=== PATIENT | male | born 1950 | race African-American/Black ===

== ENCOUNTER 2016-11-06 10:40 | Emergency (ER) | payer MEDICARE, BC ==
[2016-11-06 11:47] LABS: #Basophils 0.1 thou/uL (0.0-0.2); #Eosinphils 0.3 thou/uL (0.0-0.7); #Lymphocytes 1.7 thou/uL (1.20-3.40); #Monocytes 0.6 thou/uL (0.11-0.59); #Neutrophils 4.4 thou/uL (1.40-6.50); %Basophils 1.8 % (0.0-1.0); %Eosinophils 3.9 % (0.0-10.0); Hematocrit 32.1 % (42.0-52.0); Mean Platelet Volume 5.8 fL (7.4-10.4); Red Blood Cell (RBC) Count 3.23 mill/uL (4.70-6.10)
[2016-11-06 11:56] LABS: ALT (SGPT) 36 U/L (0-55); AST (SGOT) 16 U/L (5-34); Alkaline Phosphatase 58 U/L (40-150); Anion Gap 13 mmol/L (10-20); BUN (Urea Nitrogen) 77 mg/dL (8.4-25.7); Bilirubin, Total 0.5 mg/dL (0.2-1.2); Calc. Creatinine Clearance 0 mL/min (70-130); Calcium 9.3 mg/dL (7.8-10.44); Carbon Dioxide 22 mmol/L (23-31); Chloride 106 mmol/L (98-107); Estimated GFR-MDRD 18; Globulin 3.3 g/dL (2.4-3.5); Protein, Total 6.9 g/dL (5.8-8.1); Troponin I 0.017 ng/mL (< 0.028)
[2016-11-06 12:23] LABS: Bilirubin Negative (Negative); Blood, Urine Negative (Negative); Glucose, Urine (Dipstick) Negative (Negative); Ketone, Urine Trace mg/dL (Negative); Nitrite Negative (Negative); Protein, Urine (Dipstick) 30 mg/dL (Neg-Trace); Urobilinogen 0.2 mg/dL (0.2-1.0)
[2016-11-06 12:32] LABS: Bacteria/HPF Rare-Few HPF (None Seen); RBC/HPF None Seen HPF (0-3); Squamous Epithelial 0-3 HPF (0-3); WBC/HPF 0-3 HPF (0-3)
--- NOTE | 2016-11-06 12:34 | CT ---
CT BRAIN WITHOUT CONTRAST: Date: 11-06-[address] was done for evaluation following syncope. There are no prior scans available for comparison. FINDINGS: The ventricles are normal in size for age and show no shift. No intracranial bleeding or parenchyma l mass or hematoma was seen. There is no edema present. There is no sign of acute stroke. On slice 7 through the base of the brain there is a curious calcific density on the inside of the lo w left frontal bone. This is probably just volume averaging with the bone below. There would be an outside chance that it could be a small meningioma, but as it is only 1.1 cm in size and the possib ility of this just being volume averaging is very high, I would hesitate to do much more with it at this point. It certainly is unrelated to any current symptoms. IMPRESSION: 1. No acute intracranial findings. 2. See comment above regarding base of the left frontal bone, more likely volume averaging than not . POS: HOME
[2016-11-06 17:47] LABS: Anion Gap 13 mmol/L (10-20); BUN (Urea Nitrogen) 71 mg/dL (8.4-25.7); Calc. Creatinine Clearance 0 mL/min (70-130); Carbon Dioxide 19 mmol/L (23-31); Chloride 111 mmol/L (98-107); Estimated GFR-MDRD 21
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
--- NOTE | 2016-11-06 18:27 | PICIS ---
[facility] EMERGENCY RECORD COMMUNICATIONS COMMUNICATIONS: Ambulance service, contacted at 1415, Name of provider EMS, requested for transfer to another facility, by advanced life support transport. (14:25 LGIB) Notes: CONTACTED EMS AGAIN, ALL COUNTY TRUCKS ON CALLS AT THIS TIME AND WE WILL GET A TRUCK SOON POSSIBLE. (15:50 LGIB) Notes: EMS REP CALLED BACK AND REPORTED THAT AN OUTSIDE SERVICE WOULD TAKE AT LEAST 2 HOURS TO RECEIVE PATIENT. [facility] TRUCK IS OUT OF SERVICE. [facility] BEING SENT TO COVER THE COUNTY WHILE [facility] TRANSPORTS PATIENT TO [place]. (17:46 LGIB) TRIAGE (WedNov 06, 2016 10:48 HASA) TRIAGE NOTES: Weakness and black-out episodes x3 days. (WedNov 06, 2016 10:48 HASA) PATIENT: NAME: Norberto Mendez, AGE: 66, GENDER: male, : Wed1950, TIME OF GREET: WedNov 06, 2016 10:41, PREFERRED LANGUAGE: [place] Zealander, ETHNICITY: Not or , ECODE BILLING MAP: [facility], SSN: [id number], Zip Code: [address], KG WEIGHT: 122.47, PHONE: , , , PERSON ID: [id number], PAYMENT: [employer] Medicare, PCP: DO TAPIA JOHN SCOTT. (WedNov 06, 2016 10:48 HASA) COMPLAINT: HYPOTENSION. (WedNov 06, 2016 10:48 HASA) ADMISSION: URGENCY: 3 Urgent, ADMISSION SOURCE: Home, TRANSPORT: Walk-in, BED: ER -02. (WedNov 06, 2016 10:48 HASA) SIRS SCORING: Heart Rate 55-109 (0), Temp range 96.8-101.1 (0), respiratory rate 12-24 (0), Latest WBC 3-14.9 (0), Mental Status altered: no (0), Infection or Suspected Infection: No. (11:36 HASA) TRIAGE SCREENING: Patient denies suicidal ideation, Patient denies presence of domestic violence. (11:36 HASA) PROVIDERS: TRIAGE NURSE: Fifi De Leon RN. (WedNov 06, 2016 10:48 HASA) PREVIOUS VISIT ALLERGIES: No Known Allergies. (WedNov 06, 2016 10:48 HASA) No Known Allergies. (11:36 HASA) KNOWN ALLERGIES No Known Allergies CURRENT MEDICATIONS allopurinol: TABLET : Strength - 300 mg : ORAL Patient Dose: 100 mg Oral once a day. (11:02 HASA) Coreg: TABLET : Strength - 12.5 mg : ORAL Patient Dose: 25 mg Oral 2 times a day. (11:02 HASA) HumuLIN N: CARTRIDGE (ML) : Strength - 100 unit/mL : SUBCUTANEOUS Patient Dose: 10 units Subcutaneous 2 times a day (before &a-1R&a+25V*p+0X*q1139F*c202B*c15G*c2P*p-0X&a-25V&a+1R Name: Norberto Mendez : 1950 M66 MedRec: [id number] AcctNum: [id number] Prepared: WedNov 06, 2016 22:48 by Interface Page 1 of 16 pMD [facility] EMERGENCY RECORD meals). (11:02 HAS) cloNIDine HCl: TABLET : Strength - 0.1 mg : ORAL Patient Dose: 1 tab(s) Oral 2 times a day. (11:02 ) amitriptyline: TABLET : Strength - 75 mg : ORAL Patient Dose: 140 mg Oral once a day (at bedtime). (11:02 HAS) amLODIPine: TABLET : Strength - 2.5 mg : ORAL Patient Dose: 2.5 mg Oral once a day. (11:03 HAS) aspirin: TABLET : Strength - 81 mg : ORAL Patient Dose: 81 mg Oral once a day. (11:03 HASA) cholecalciferol (vitamin D3): CAPSULE : Strength - 1,000 unit : ORAL Patient Dose: 1 tab(s) Oral once a day. (11:04 HAS) NexIUM Packet: SUSP FOR RECON,DELAYED REL. IN A PACKET : Strength - 20 mg : ORAL Patient Dose: 20 mg Oral once a day. (11:05 HAS) Lasix: TABLET : Strength - 40 mg : ORAL Patient Dose: 40 mg Oral once a day. (11:05 HAS) Lantus Solostar: INSULIN PEN (ML) : Strength - 100 unit/mL (3 mL) : SUBCUTANEOUS Patient Dose: 50 units Subcutaneous once a day (at bedtime). (11:43 HASA) HumuLIN 70/30: VIAL (ML) : Strength - 100 unit/mL (70-30) : SUBCUTANEOUS Patient Dose: 10 units Subcutaneous 3 times a day (before meals). (11:44 HASA) losartan: TABLET : Strength - 100 mg : ORAL Patient Dose: 100 mg Oral once a day. (11:45 HASA) meloxicam: TABLET : Strength - 7.5 mg : ORAL Patient Dose: 7.5 mg Oral once a day. (11:45 HASA) Fish Oil [place] 3-6-9: CAPSULE,DELAYED RELEASE (ENTERIC COATED) : Strength - 300 mg-1,000 mg : ORAL Patient Dose: 1 tab(s) Oral 2 times a day. (11:47 HASA) Restoril: CAPSULE : Strength - 30 mg : ORAL Patient Dose: 30 mg Oral once a day (at bedtime). (11:48 HASA) traMADol: TABLET : Strength - 50 mg : ORAL Patient Dose: 1-2 tab(s) Oral every 8 hours PRN. (11:48 HASA) Viagra: &a-1R&a+25V*p+0X*t7353A*c202B*c15G*c2P*p-0X&a-25V&a+1R Name: Norberto Mendez : 1950 M66 MedRec: [id number] AcctNum: [id number] Prepared: WedNov 06, 2016 22:48 by Interface Page 2 of 16 pMD [facility] EMERGENCY RECORD TABLET : Strength - 100 mg : ORAL Patient Dose: 100 mg Oral As Needed. (11:56 HASA) hydrALAZINE: TABLET : Strength - 100 mg : ORAL Patient Dose: 100 mg Oral 3 times a day. (12:51 HASA) VITAL SIGNS VITAL SIGNS: BP: 167/95, Pulse: 87, Resp: 17, Temp: 98.2 (Oral), Pain: 0, O2 sat: 98 on Room Air, Time: 11/06/2016 10:49. (10:49 HASA) BP: 114/69, Pulse: 82, Resp: 15, O2 sat: 94 on Room Air, Time: 11/06/2016 11:05. (11:05 HASA) BP: 124/71, Pulse: 82, Resp: 12, Time: 11/06/2016 11:10. (11:10 HASA) BP: 119/71, Pulse: 81, Resp: 20, O2 sat: 100 on Room Air, Time: 11/06/2016 11:15. (11:15 HASA) BP: 133/72, Pulse: 75, Resp: 16 (Non-Labored), Pain: 0, O2 sat: 100 on Room Air, Time: 11/06/2016 12:45. (12:45 LGIB) BP: 145/78, Pulse: 66, Resp: 16, O2 sat: 100 on Room Air, Time: 11/06/2016 15:15. (15:15 HASA) BP: 139/78, Pulse: 75, Resp: 12, O2 sat: 100 on Room Air, Time: 11/06/2016 15:30. (15:30 HASA) BP: 144/74, Pulse: 81, Resp: 12, Pain: 0, O2 sat: 100 on Room Air, Time: 11/06/2016 16:00. (16:00 HASA) BP: 156/80, Pulse: 68, Resp: 16, O2 sat: 100 on Room Air, Time: 11/06/2016 13:15. (13:15 HASA) BP: 163/79, Pulse: 67, Resp: 14, O2 sat: 100 on Room Air, Time: 11/06/2016 13:44. (13:44 HASA) BP: 178/98, Pulse: 63, Resp: 13, Pain: 0, O2 sat: 99 on Room Air, Time: 11/06/2016 14:30. (14:30 HASA) BP: 163/78, Pulse: 71, Resp: 12, O2 sat: 100 on Room Air, Time: 11/06/2016 16:30. (16:30 HASA) BP: 128/71, Pulse: 84, Resp: 12 (Non-Labored), Temp: 97.4 (Oral), Pain: 0, O2 sat: 100 on Room Air, Time: 11/06/2016 17:00. (17:00 HASA) BP: 117/75, Pulse: 82, Resp: 12, Pain: 0, O2 sat: 100 on Room Air, Time: 11/06/2016 17:30. (17:30 HASA) NURSING ASSESSMENT: FALL RISK (17:00 HASA) FALL RISK: Fall risk assessment findings include: no history of falls (0), Bed rest greater than 2 days (5), Use of level of consciousness altering agents with mentation or cognitive changes (3), Change in blood pressure (1), Sensory deficits (1), Impaired mobility (3), No neurologic diagnosis (0), No elimination problems (0), No confusion (0), Total score 13, Fall risk. NURSING ASSESSMENT: NEURO (11:19 HASA) GCS: (6) Obeying command:, (5) Orientated:, (4) Spontaneous eye opening., Result: 15. NIHSS: CVA assessment findings: Level of consciousness: alert, keenly responsive (0), Questions: answers both questions correctly (0), Commands: performs both tasks correctly (0), Best gaze: normal &a-1R&a+25V*p+0X*k7083J*c202B*c15G*c2P*p-0X&a-25V&a+1R Name: Norberto Mendez : 1950 M66 MedRec: [id number] AcctNum: [id number] Prepared: WedNov 06, 2016 22:48 by Interface Page 3 of 16 pMD [facility] EMERGENCY RECORD (0), Visual: no visual loss (0), Facial palsy: normal symmetrical movement (0), Motor Left Arm: no drift, arm stays 90/45 degrees for full 10 seconds (0), Motor Right Arm: no drift, arm stays 90/45 degrees for full 10 seconds (0), Motor left leg: no drift, leg stays at 30 degrees for full five seconds (0), Motor right leg: no drift, leg stays at 30 degrees for full five seconds (0), Limb ataxia absent (0), Sensory: normal, no sensory loss (0), Best language: mild to moderate aphasia; some obvious loss of fluency or facility of comprehension without significant limitation on ideas expressed or form of expression. Reduction of speech and/or comprehension, however, makes conversation about provided material difficult or impossible (1), Dysarthria: mild to moderate: patient slurs at least some words and, at worst, can be understood with some difficulty (1), Extinction and Inattention: normal (0), Total score 2. CONSTITUTIONAL: Patient arrives, via hospital wheelchair, Gait steady, History obtained from patient, Patient appears, Lethargic, Patient cooperative, Patient alert, Oriented to person, place and time, Skin warm, Skin dry, Skin normal in color, Mucous membranes pink, Mucous membranes moist, Patient is well-groomed, Patient complains of AMS, Patient arrives to the ED after being sent by PCP for BP of 100/66. Patient denies pain. Family reports patient has been having "black-out episodes" x3 days. Denies falling or hitting head. Reports weakness x3 days. PAIN: Patient rates pain as 0 out of 10. NEURO: Pupils equally round and reactive to light, Able to close eyes, Face symmetrical, Speech, slurred, slow, Hand grasps equal, Upper extremity strength strong, Lower extremity strength strong, Foot press equal, no associated fever, Associated with weakness. ENT: Ear assessment findings include ear normal to inspection, Nasal assessment findings include nose normal to inspection, Sinuses normal, Nasal mucosa normal, Mouth and throat assessment findings include mouth inspection normal, Uvula normal, Tonsils normal, Mucous membranes pink, and, dry, tacky, Able to swallow, Patient, Slurred and slow speech, no associated fever. SAFETY: Side rails up, Cart/Stretcher in lowest position, Family at bedside, Call light within reach, Hospital ID band on. NURSING ASSESSMENT: SKIN (17:00 HASA) SKIN: Skin assessment findings include skin warm, Skin dry, Skin normal in color, Inspection findings include: No pressure ulcer to the shoulder, Inspection findings include no pressure ulcer to the elbow, Inspection findings include no pressure ulcers to the hip, Inspection findings include no pressure ulcer to the sacrum, Inspection findings include no pressure ulcer to the heel, Inspection findings include no pressure ulcer, Inspection findings include no pressure ulcer. &a-1R&a+25V*p+0X*n9554O*c202B*c15G*c2P*p-0X&a-25V&a+1R Name: Norberto Mendez : 1950 M66 MedRec: [id number] AcctNum: [id number] Prepared: WedNov 06, 2016 22:48 by Interface Page 4 of 16 D [facility] EMERGENCY RECORD NURSING PROCEDURE: BEDSIDE SIRS TESTING (17:04 HASA) SCORES: Heart Rate 55-109 (0), Temp range 96.8-101.1 (0), respiratory rate 12-24 (0), Latest WBC 3-14.9 (0), Mental Status altered: no (0), Infection or Suspected Infection: No. NURSING PROCEDURE: BEDSIDE TESTING (10:54 HASA) PATIENT IDENTIFIER: Patient actively involved in identification process, Patient's identity verified by patient stating name, Patient's identity verified by patient stating date. GLUCOSE: Glucose testing indicated for diabetic patient, Capillary blood sample, Result (mg/dl) 91. FOLLOW-UP: After procedure, results given to Dr. RILEY. SAFETY: Side rails up, Cart/Stretcher in lowest position, Family at bedside, Call light within reach, Hospital ID band on. NURSING PROCEDURE: BINDER FIXER (10:59 HASA) PATIENT IDENTIFIER: Patient actively involved in identification process, Patient's identity verified by patient stating name, Patient's identity verified by patient stating date. BINDER FIXER: Patient placed on pvc monitor. FOLLOW-UP: After procedure, alarms set and on, After procedure, patient tolerating monitoring. SAFETY: Side rails up, Cart/Stretcher in lowest position, Family at bedside, Call light within reach, Hospital ID band on. NURSING PROCEDURE: EKG CHART (10:55 HASA) PATIENT IDENTIFIER: Patient actively involved in identification process, Patient's identity verified by patient stating name, Patient's identity verified by patient stating date. EKG: EKG indicated for HYPOTENSION/AMS, 12 lead EKG performed on the left chest, done by MARIAMA Burgess, first EKG. FOLLOW-UP: After procedure, EKG for interpretation given to Dr. RILEY. SAFETY: Side rails up, Cart/Stretcher in lowest position, Family at bedside, Call light within reach, Hospital ID band on. NURSING PROCEDURE: ELIMINATION PATIENT IDENTIFIER: Patient actively involved in identification process, Patient's identity verified by patient stating name, Patient's identity verified by patient stating date. (11:57 HASA) Patient actively involved in identification process, Patient's identity verified by patient stating name, Patient's identity verified by patient stating date. (17:51 HASA) ELIMINATION: Patient assisted to bedside commode. (11:57 HASA) Notes: Patient assisted to bathroom by wheelchair. (17:51 HASA) SAFETY: Side rails up, Cart/Stretcher in lowest position, Family at bedside, Call light within reach, Hospital ID band on. (17:51 HASA) &a-1R&a+25V*p+0X*j6306L*c202B*c15G*c2P*p-0X&a-25V&a+1R Name: Norberto Mendez : 1950 M66 MedRec: [id number] AcctNum: [id number] Prepared: WedNov 06, 2016 22:48 by Interface Page 5 of 16 pMD [facility] EMERGENCY RECORD NURSING PROCEDURE: INTAKE AND OUTPUT (17:38 HASA) INTAKE AND OUTPUT: IV intake(ml): 2500, Total Intake (ml): 2500ml, Urine output(ml): 1700, Total Output (ml): 1700ml, Grand Total: Intake is greater than output by 800mls. SAFETY: Side rails up, Cart/Stretcher in lowest position, Family at bedside, Call light within reach, Hospital ID band on. NURSING PROCEDURE: IV (10:53 HASA) PATIENT IDENITIFIER: Patient actively involved in identification process, Patient's identity verified by patient stating name, Patient's identity verified by patient stating date. IV SITE 1: IV therapy indicated for hydration, IV therapy indicated for medication administration, IV established, to the right hand, using a 20 gauge catheter, in one attempt, Saline lock established, Flushed with normal saline (mls): 10, Notes: Established by MARIAMA Gardner. FOLLOW-UP SITE 1: After procedure, sterile transparent dressing applied, After procedure, no drainage at IV site, After procedure, no swelling at IV site, After procedure, no redness at IV site. SAFETY: Side rails up, Cart/Stretcher in lowest position, Family at bedside, Call light within reach, Hospital ID band on. NURSING PROCEDURE: NURSE NOTES NURSES NOTES: Notes: PT RESTING, NAD, RR EVEN AND UNLABORED. NO NEEDS AT THIS TIME. IV FLUIDS INFUSING. (13:08 LGIB) Notes: Patient awaiting transport. Patient resting in bed. Lights dimmed for patient comfortability. IV fluids infusing. NAD. (14:43 HASA) Notes: Patient assisted to bedside commode. Encouraged to provide urine sample. Patient instructed not to get up without assistance from nursing staff. Family at bedside. (12:02 HASA) Notes: Provided warm blanket and lights off per patient request. Patient resting comfortably in bed. Eyes closed. Awaiting EMS transport. Family at bedside. Monitors on. NAD. (16:09 HASA) Notes: Lab @ bedside. (17:09 HASA) Notes: Notified Dr. Riley of K+ level change from 6.2 to 6.5. No new orders received at this time. (17:56 HASA) NURSING PROCEDURE: ORTHOSTATIC VITAL SIGNS (13:52 HASA) PATIENT IDENTIFIER: Patient actively involved in identification process, Patient's identity verified by patient stating name, Patient's identity verified by patient stating date. ORTHOSTATIC VITAL SIGNS: Orthostatic vital signs indicated for LETHARGY, Lying:, Blood pressure: 163/79, Sitting:, Blood pressure: 122/87, Standing:, Blood pressure: 99/83, No dizziness with position change, Unsteadiness on feet. FOLLOW-UP: After procedure, results given to Dr. RILEY. SAFETY: Side rails up, Cart/Stretcher in lowest position, Family at bedside, Call light within reach, Hospital ID band on. &a-1R&a+25V*p+0X*h5593G*c202B*c15G*c2P*p-0X&a-25V&a+1R Name: Norberto Mendez : 1950 M66 MedRec: [id number] AcctNum: [id number] Prepared: WedNov 06, 2016 22:48 by Interface Page 6 of 16 pMD [facility] EMERGENCY RECORD NURSING PROCEDURE: POSITIONING PATIENT IDENTIFIER: Patient actively involved in identification process, Patient's identity verified by patient stating name, Patient's identity verified by patient stating date. (14:05 HASA) Patient actively involved in identification process, Patient's identity verified by patient stating name, Patient's identity verified by patient stating date. (16:15 HASA) POSITIONING: Positioning indicated for prevention of pressure ulcers, Patient placed in dorsal recumbent position, Patient placed in semi-Brito's position, Patient placed in side lying position on the left, head of bed elevated, (degrees) 30. (14:05 HASA) Positioning indicated for prevention of pressure ulcers, Patient placed in dorsal recumbent position, Patient placed in semi-Brito's position, Patient placed in side lying position on the right, head of bed elevated, (degrees) 15. (16:15 HASA) FOLLOW-UP: After procedure, patient resting comfortably. (14:22 HASA) After procedure, patient resting comfortably. (16:29 HASA) SAFETY: Side rails up, Cart/Stretcher in lowest position, Family at bedside, Call light within reach, Hospital ID band on. (14:05 HASA) Side rails up, Cart/Stretcher in lowest position, Family at bedside, Call light within reach, Hospital ID band on. (16:15 HASA) NURSING PROCEDURE: TRANSPORT TO TESTS PATIENT IDENTIFIER: Patient actively involved in identification process, Patient's identity verified by patient stating name, Patient's identity verified by patient stating date. (11:31 HASA) TRANSPORT TO TESTS: Transport indicated to facilitate diagnosis, Patient transported to CT scan, via cart, Accompanied by x-ray spa technician. (11:31 HASA) FOLLOW-UP: After procedure, patient returned to emergency department. (11:39 HASA) SAFETY: Side rails up, Cart/Stretcher in lowest position, Family at bedside, Call light within reach, Hospital ID band on. (11:31 HASA) ORDER DETAILS Order Name: Basic Metabolic Panel, Status: Active, Time: 17:04 11/06/2016, User: MARTINA, - Ordered for: DO Riley William, - Entered by: MARIAMA De Leon, [facility] Nov 06, 2016 17:04, - Quantity: 1, Order Name: BINDER FIXER ED, Status: Done, Time: 11:40 11/06/2016, User: MARTINA, - Ordered for: DO Riley William, &a-1R&a+25V*p+0X*q4083U*c202B*c15G*c2P*p-0X&a-25V&a+1R Name: Norberto Mendez : 1950 M66 MedRec: [id number] AcctNum: [id number] Prepared: WedNov 06, 2016 22:48 by Interface Page 7 of 16 pMD [facility] EMERGENCY RECORD - Entered by: MARIAMA De Leon, [place] - WedNov 06, 2016 11:40, - Quantity: 1, Order Name: Cardiac Profile w/CKMB & Troponin - I, Status: Active, Time: 11:05 11/06/2016, User: ISABEL, - Ordered for: DO Riley William, - Entered by: DO Riley William - WedNov 06, 2016 11:05, - Quantity: 1, Order Name: CBC with Differential, Status: Active, Time: 11:05 11/06/2016, User: ISABEL, - Ordered for: DO Riley William, - Entered by: DO Riley William - WedNov 06, 2016 11:05, - Quantity: 1, Order Name: Comprehensive Metabolic Panel, Status: Active, Time: 11:05 11/06/2016, User: ISABEL, - Ordered for: DO Riley William, - Entered by: DO Riley William - WedNov 06, 2016 11:05, - Quantity: 1, Order Name: CT Brain WO Con, Status: Active, Time: 11:16 11/06/2016, User: ISABEL, - Ordered for: DO Riley William, - Entered by: DO Riley William - WedNov 06, 2016 11:16, - Quantity: 1, Order Name: EKG 12 Lead in Emergency Room, Status: Active, Time: 11:40 11/06/2016, User: MARTINA, - Ordered for: DO Riley William, - Entered by: MARIAMA De Leon, [place] - WedNov 06, 2016 11:40, - Quantity: 1, Order Name: SALINE LOCK, Status: Done, Time: 11:08 11/06/2016, User: CAMACHO, - Ordered for: DO Riley William, - Entered by: DO Riley William - WedNov 06, 2016 11:05, - Quantity: 1, Order Name: Urinalysis with Microscopic, Status: Active, Time: 12:00 11/06/2016, User: [facility], - Ordered for: DO Riley William, - Entered by: DO Riley William - WedNov 06, 2016 12:00, - Quantity: 1. MEDICATION ADMINISTRATION SUMMARY Drug Name: *sodium chloride 0.9 % intravenous, Dose Ordered: 1 L, Route: IV Fluid Infusion, Status: Given, Time: 14:31 11/06/2016, Drug Name: *sodium chloride 0.9 % intravenous, Dose Ordered: 1 L, Route: IV Fluid Infusion, Status: Given, Time: 13:01 11/06/2016, Drug Name: sodium polystyrene sulfonate oral, Dose Ordered: 15 g, Route: Oral, Status: Given, Time: 12:20 11/06/2016, Drug Name: *sodium chloride 0.9 % intravenous, Dose Ordered: 500 mL, Route: IV Fluid Infusion, Status: Given, Time: 11:07 11/06/2016, *Additional information available in notes, Detailed record available in Medication Service section. &a-1R&a+25V*p+0X*o8616Z*c202B*c15G*c2P*p-0X&a-25V&a+1R Name: Norberto Mendez : 1950 M66 MedRec: [id number] AcctNum: [id number] Prepared: WedNov 06, 2016 22:48 by Interface Page 8 of 16 pMD [facility] EMERGENCY RECORD MEDICATION SERVICE sodium chloride 0.9 % intravenous: Order: sodium chloride 0.9 % intravenous (0.9 % sodium chloride) - Dose: 500 mL : IV Fluid Infusion Notes: (Bolus) Ordered by: Shoaib Riley DO Entered by: Shoaib Riley DO WedNov 06, 2016 11:05 , Acknowledged by: Kendra Peralta RN WedNov 06, 2016 11:07 Documented as given by: Kendra Peralta RN WedNov 06, 2016 11:07 Patient, Medication, Dose, Route and Time verified prior to administration. IV SITE #1 IV fluids established for hydration, IV SITE #1 into right hand, IV SITE #1 1st bag hung, IV SITE #1 bolus of 500 ml established, via primary tubing, IV SITE #1 on IV pump, Catheter placement confirmed via flush prior to administration, IV site without signs or symptoms of infiltration during medication administration, No swelling during administration, No drainage during administration, IV flushed after administration, Correct patient, time, route, dose and medication confirmed prior to administration, Patient advised of actions and side-effects prior to administration, Allergies confirmed and medications reviewed prior to administration. : Follow Up : Response assessment performed, No signs or symptoms of allergic reaction noted, _IV SITE #1:_, IV fluid infusion discontinued, on WedNov 06, 2016 12:30, Total fluid hydration time IV site 1 1 hour, 25 minutes, ., Total amount infused: 1 L, Advised not to ambulate without assistance, Patient in position of comfort, Side rails up, Cart in lowest position, Family at bedside. (12:30 HASA) sodium chloride 0.9 % intravenous: Order: sodium chloride 0.9 % intravenous (0.9 % sodium chloride) - Dose: 1 L : IV Fluid Infusion Schedule: Every hour Notes: 1 HR Ordered by: Shoaib iRley DO Entered by: Shoaib Riley DO WedNov 06, 2016 12:04 , Acknowledged by: Alexia Moreland RN WedNov 06, 2016 12:14 Documented as given by: Alexia Moreland RN WedNov 06, 2016 13:01 Patient, Medication, Dose, Route and Time verified prior to administration. IV SITE #1 IV fluids established for hydration, IV SITE #1 into right hand, IV SITE #1 Rate of infusion (non-bolus) Infusing at 1000 ml/hr, via primary tubing, IV SITE #1 on IV pump, Catheter placement confirmed via flush prior to administration, IV site without signs or symptoms of infiltration during medication administration, No swelling during administration, No drainage during administration, IV flushed after administration, Correct patient, time, route, dose and medication confirmed prior to administration, Patient advised of actions and side-effects prior to administration, Allergies confirmed and medications reviewed prior to administration, Patient in position &a-1R&a+25V*p+0X*n9907E*c202B*c15G*c2P*p-0X&a-25V&a+1R Name: MendezNorberto castillo : 1950 M66 MedRec: [id number] AcctNum: [id number] Prepared: WedNov 06, 2016 22:48 by Interface Page 9 of 16 pMD [facility] EMERGENCY RECORD of comfort, Side rails up, Cart in lowest position, Family at bedside. : Follow Up : Response assessment performed, No signs or symptoms of allergic reaction noted, _IV SITE #1:_, IV fluid infusion discontinued, on WedNov 06, 2016 14:05, Total fluid hydration time IV site 1 1 hour, 5 minutes, ., Total amount infused: 1 L, Advised not to ambulate without assistance, Patient in position of comfort, Side rails up, Cart in lowest position, Family at bedside. (14:05 HASA) sodium chloride 0.9 % intravenous: Order: sodium chloride 0.9 % intravenous (0.9 % sodium chloride) - Dose: 1 L : IV Fluid Infusion Schedule: Now Notes: OVER [address] RILEY Ordered by: Shoaib Riley DO Entered by: Alexia Moreland RN WedNov 06, 2016 14:33 Documented as given by: Alexia Moreland RN WedNov 06, 2016 14:31 Patient, Medication, Dose, Route and Time verified prior to administration. IV SITE #1 IV fluids established for hydration, IV SITE #1 into right hand, IV SITE #1 3rd bag hung, amount 1 Liter hung, IV SITE #1 Rate of infusion (non-bolus) Infusing at 1000 ml/hr, via primary tubing, IV SITE #1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
== END 2016-11-06 18:10 | disposition short-term general hospital (02) ==
LOC: BURERS 10:40
DX: E86.0 Dehydration (principal); E87.5 Hyperkalemia; I95.1 Orthostatic hypotension; I25.10 Atherosclerotic heart disease of native coronary artery without angina pectoris; E11.9 Type 2 diabetes mellitus without complications; E78.5 Hyperlipidemia, unspecified; E78.00 Pure hypercholesterolemia, unspecified; E66.9 Obesity, unspecified; I11.0 Hypertensive heart disease with heart failure; I50.9 Heart failure, unspecified; M06.9 Rheumatoid arthritis, unspecified; Z79.4 Long term (current) use of insulin; Z79.82 Long term (current) use of aspirin; Z79.899 Other long term (current) drug therapy
CPT/HCPCS: 36416; 70450; 80053; 81001; 82553; 84484; 85025; 93005; 96360; 96361; 36415-59

== ENCOUNTER 2017-04-07 03:17 | Emergency (ER) | payer MEDICARE, BC ==
[2017-04-07 04:00] LABS: Bilirubin Negative (Negative); Blood, Urine Negative (Negative); Clarity Slightly Cloudy (Clear); Glucose, Urine (Dipstick) Negative (Negative); Leukocyte Trace (Negative); Nitrite Negative (Negative); Protein, Urine (Dipstick) 100 mg/dL (Neg-Trace); Urobilinogen 0.2 mg/dL (0.2-1.0); pH, Urine 5.5 (5.0-9.0)
[2017-04-07 04:09] LABS: Bacteria/HPF 1+ HPF (None Seen); Hyaline Casts/LPF 0-3 HYALINE CAST LPF (0-3 Hyaline); RBC/HPF 0-3 HPF (0-3); Squamous Epithelial 0-3 HPF (0-3)
[2017-04-07] MEDS ORDERED: Magnesium Citrate 300 ML BOT ONE (04:56)
[2017-04-07] MEDS ORDERED: Bisacodyl 10 MG SUPP ONE (04:56)
[2017-04-07 05:09] LABS: ALT (SGPT) 11 U/L (8-55); AST (SGOT) 17 U/L (5-34); Albumin 3.6 g/dL (3.4-4.8); Alkaline Phosphatase 59 U/L (40-150); Anion Gap 19 mmol/L (10-20); BUN (Urea Nitrogen) 39 mg/dL (8.4-25.7); Bilirubin, Total 0.8 mg/dL (0.2-1.2); Calc. Creatinine Clearance 0 mL/min (70-130); Carbon Dioxide 17 mmol/L (23-31); Chloride 105 mmol/L (98-107); Estimated GFR-MDRD 25; Globulin 3.7 g/dL (2.4-3.5); Glucose 125 mg/dL (80-115); Potassium 4.3 mmol/L (3.5-5.1); Protein, Total 7.3 g/dL (5.8-8.1); Sodium 137 mmol/L (136-145)
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
== END 2017-04-07 05:10 | disposition home or self-care (01) ==
LOC: BURERS 03:17
DX: K59.00 Constipation, unspecified (principal); I13.0 Hypertensive heart and chronic kidney disease with heart failure and stage 1 through stage 4 chronic kidney disease, or unspecified chronic kidney disease; E11.22 Type 2 diabetes mellitus with diabetic chronic kidney disease; N18.9 Chronic kidney disease, unspecified; I50.9 Heart failure, unspecified; E78.5 Hyperlipidemia, unspecified; E66.9 Obesity, unspecified; M10.9 Gout, unspecified; Z79.4 Long term (current) use of insulin; Z79.82 Long term (current) use of aspirin; Z79.899 Other long term (current) drug therapy
CPT/HCPCS: 74176; 80053; 81003; 81015; 36415-59

== ENCOUNTER 2017-10-18 08:31 | Outpatient (CLI) | payer MEDICARE, BC ==
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
== END 2017-10-18 08:32 | disposition home or self-care (01) ==
LOC: BURRAD 08:31
PROVIDERS: ATTEND Anesthesiology
DX: M54.5 Low back pain (principal); M47.817 Spondylosis without myelopathy or radiculopathy, lumbosacral region
CPT/HCPCS: 72100

== ENCOUNTER 2018-01-19 08:06 | Outpatient (CLI) | payer MEDICARE, BC ==
--- NOTE | 2018-01-19 20:53 | ULT ---
LEFT LEG VENOUS DOPPLER ULTRASOUND 01/19/18 Color duplex doppler ultrasonography of the deep veins of the left lower extremity was performed. No echogenic clot was seen. All deep veins were freely compressible from groin to ankle. There was norm al doppler response to augmentation maneuvers. IMPRESSION: No evidence of DVT. POS: HOME
== END 2018-01-19 08:07 | disposition home or self-care (01) ==
LOC: BURULT 08:06
PROVIDERS: ATTEND Family Medicine
DX: M79.605 Pain in left leg (principal); M79.89 Other specified soft tissue disorders

== ENCOUNTER 2020-11-19 19:30 | Emergency (ER) | payer BC, MEDICARE ==
[2020-11-19 20:34] LABS: Anion Gap 15 mmol/L (10-20); BUN (Urea Nitrogen) 17 mg/dL (8.4-25.7); Calc. Creatinine Clearance 0 mL/min (70-130); Calcium 8.6 mg/dL (7.8-10.44); Carbon Dioxide 27 mmol/L (23-31); Chloride 101 mmol/L (98-107); Glucose 176 mg/dL (83-110); Potassium 4.2 mmol/L (3.5-5.1); Sodium 139 mmol/L (136-145)
[2020-11-19] MEDS ORDERED: Cyclobenzaprine 10 MG TAB ONE (20:50)
== END 2020-11-19 20:58 | disposition home or self-care (01) ==
LOC: BURERS 19:30
DX: R25.2 Cramp and spasm (principal); I25.10 Atherosclerotic heart disease of native coronary artery without angina pectoris; E11.9 Type 2 diabetes mellitus without complications; E78.5 Hyperlipidemia, unspecified; M06.9 Rheumatoid arthritis, unspecified; E66.9 Obesity, unspecified; G47.30 Sleep apnea, unspecified; I50.9 Heart failure, unspecified; I11.0 Hypertensive heart disease with heart failure
CPT/HCPCS: 80048; 99283

== ENCOUNTER 2020-12-02 13:33 | Emergency (ER) | payer MEDICARE ==
[2020-12-02 14:37] LABS: Prothrombin Time 13.2 sec (12.0-14.7)
[2020-12-02 14:42] LABS: #Basophils 0.1 thou/uL (0.0-0.2); #Eosinphils 0.4 thou/uL (0.0-0.7); #Monocytes 0.7 thou/uL (0.11-0.59); #Neutrophils 4.3 thou/uL (1.40-6.50); %Basophils 1.9 % (0.0-1.0); %Eosinophils 5.7 % (0.0-10.0); %Lymphocytes 26.6 % (21.0-51.0); %Monocytes 9.1 % (0.0-10.0); %Neutrophils 56.8 % (42.0-75.0); Hemoglobin 9.9 g/dL (14.0-18.0); Mean Corpuscular Hemoglobin 32.5 pg (27.0-31.0); Mean Platelet Volume 6.2 fL (7.4-10.4); Platelet Count 251 thou/uL (130-400); RBC Distribution Width 16.6 % (11.5-14.5); Red Blood Cell (RBC) Count 3.03 mill/uL (4.70-6.10); White Blood Cell (WBC) Count 7.6 thou/uL (4.8-10.8)
[2020-12-02 14:43] LABS: MDiff Complete? YES; Macrocytosis SLIGHT = 6-15 cells (100X) (0-5/hpf)
[2020-12-02 14:47] LABS: ALT (SGPT) 17 U/L (8-55); AST (SGOT) 25 U/L (5-34); Albumin 2.7 g/dL (3.4-4.8); Alkaline Phosphatase 66 U/L (40-110); Anion Gap 14 mmol/L (10-20); BUN (Urea Nitrogen) 22 mg/dL (8.4-25.7); Bilirubin, Total 0.4 mg/dL (0.2-1.2); CK (CPK) 98 U/L (30-200); Calc. Creatinine Clearance 0 mL/min (70-130); Calcium 9.2 mg/dL (7.8-10.44); Carbon Dioxide 28 mmol/L (23-31); Chloride 98 mmol/L (98-107); Globulin 3.8 g/dL (2.4-3.5); Glucose 103 mg/dL (83-110); Potassium 4.1 mmol/L (3.5-5.1); Protein, Total 6.5 g/dL (5.8-8.1); Sodium 136 mmol/L (136-145)
[2020-12-02] MEDS ORDERED: HYDROcodone/Acetaminophen 5/325 mg Tablet ONE (14:59)
== END 2020-12-02 15:05 | disposition short-term general hospital (02) ==
LOC: BURERS 13:33
DX: R60.0 Localized edema (principal); E11.9 Type 2 diabetes mellitus without complications; E78.5 Hyperlipidemia, unspecified; M10.9 Gout, unspecified; I11.0 Hypertensive heart disease with heart failure; I50.9 Heart failure, unspecified; G47.30 Sleep apnea, unspecified; E66.9 Obesity, unspecified; Z79.82 Long term (current) use of aspirin; Z79.4 Long term (current) use of insulin; Z79.899 Other long term (current) drug therapy
CPT/HCPCS: 36415; 80053; 82550; 85025; 85610; 99284

== ENCOUNTER 2020-12-22 02:44 | Emergency (ER) | payer MEDICARE ==
[2020-12-22 04:44] LABS: Hemoglobin 10.9 g/dL (14.0-18.0); Mean Corpuscular HGB CONC 30.8 g/dL (32.0-36.0); Mean Corpuscular Hemoglobin 32.8 pg (27.0-31.0); Mean Platelet Volume 6.2 fL (7.4-10.4); Platelet Count 264 thou/uL (130-400); RBC Distribution Width 15.9 % (11.5-14.5); Red Blood Cell (RBC) Count 3.32 mill/uL (4.70-6.10); White Blood Cell (WBC) Count 10.8 thou/uL (4.8-10.8)
[2020-12-22 04:54] LABS: ALT (SGPT) 15 U/L (8-55); AST (SGOT) 29 U/L (5-34); Albumin 2.8 g/dL (3.4-4.8); Alkaline Phosphatase 77 U/L (40-110); Anion Gap 17 mmol/L (10-20); BUN (Urea Nitrogen) 23 mg/dL (8.4-25.7); Bilirubin, Total 0.4 mg/dL (0.2-1.2); Calc. Creatinine Clearance 0 mL/min (70-130); Calcium 9.8 mg/dL (7.8-10.44); Carbon Dioxide 26 mmol/L (23-31); Chloride 98 mmol/L (98-107); Globulin 4.5 g/dL (2.4-3.5); Glucose 113 mg/dL (83-110); Potassium 4.5 mmol/L (3.5-5.1); Protein, Total 7.3 g/dL (5.8-8.1); Sodium 136 mmol/L (136-145)
[2020-12-22 05:05] LABS: Anisocytosis SLIGHT = 6-15 cells (100X) (0-5/hpf); Eosinophils 7 % (0-10); Lymphocytes 17 % (21-51); Macrocytosis SLIGHT = 6-15 cells (100X) (0-5/hpf); Monocytes 9 % (0-10); Neutrophil 67 % (42-75); Platelet Morphology Comment Appears Adequate; Vacuoles SLIGHT
[2020-12-22 05:06] LABS: MDiff Complete? YES; Manual Diff?? YES
--- NOTE | 2020-12-22 10:40 | RAD ---
LEFT HIP 3 VIEWS: HISTORY: Fall with hip pain. FINDINGS: There are very mild arthritic changes of the hip. I do not see any signs of fracture or dislocation. IMPRESSION: Negative left hip. POS: OFF
--- NOTE | 2020-12-22 10:47 | RAD ---
AP PELVIS: HISTORY: Fall with left hip pain. FINDINGS: Arthritic changes of the lower lumbar spine and both hips are noted. The pelvic ring is intact. No fractures are seen. IMPRESSION: No evidence of fracture. POS: OFF
== END 2020-12-22 05:10 | disposition home or self-care (01) ==
LOC: BURERS 02:44
DX: S76.012A Strain of muscle, fascia and tendon of left hip, initial encounter (principal); I13.2 Hypertensive heart and chronic kidney disease with heart failure and with stage 5 chronic kidney disease, or end stage renal disease; I50.9 Heart failure, unspecified; E78.5 Hyperlipidemia, unspecified; E66.9 Obesity, unspecified; E11.22 Type 2 diabetes mellitus with diabetic chronic kidney disease; N18.6 End stage renal disease; I25.10 Atherosclerotic heart disease of native coronary artery without angina pectoris; M10.9 Gout, unspecified; M06.9 Rheumatoid arthritis, unspecified; G47.30 Sleep apnea, unspecified; W18.30XA Fall on same level, unspecified, initial encounter; Z79.899 Other long term (current) drug therapy; Z79.82 Long term (current) use of aspirin
CPT/HCPCS: 36415; 72170; 80053; 85025

== ENCOUNTER 2022-04-18 09:51 | Emergency (ER) | payer MEDICARE ==
[2022-04-18 10:33] LABS: #Basophils 0.1 thou/uL (0.0-0.2); #Eosinphils 0.3 thou/uL (0.0-0.7); #Lymphocytes 2.3 thou/uL (1.20-3.40); #Monocytes 0.6 thou/uL (0.11-0.59); #Neutrophils 3.6 thou/uL (1.40-6.50); %Basophils 1.3 % (0.0-1.0); %Eosinophils 5.1 % (0.0-10.0); %Lymphocytes 33.2 % (21.0-51.0); %Monocytes 8.3 % (0.0-10.0); %Neutrophils 52.2 % (42.0-75.0); Hemoglobin 13.9 g/dL (14.0-18.0); Mean Corpuscular HGB CONC 31.6 g/dL (32.0-36.0); Mean Corpuscular Hemoglobin 34.6 pg (27.0-31.0); Mean Platelet Volume 6.1 fL (7.4-10.4); Platelet Count 174 thou/uL (130-400); RBC Distribution Width 13.8 % (11.5-14.5); Red Blood Cell (RBC) Count 4.02 mill/uL (4.70-6.10); White Blood Cell (WBC) Count 6.8 thou/uL (4.8-10.8)
[2022-04-18 10:34] LABS: MDiff Complete? YES
[2022-04-18 10:42] LABS: CK (CPK) 47 U/L (30-200); CRP (Inflammatory) Less than 0.50 mg/dL (= or < 0.5)
[2022-04-18 10:49] LABS: ALT (SGPT) 63 U/L (8-55); AST (SGOT) 30 U/L (5-34); Albumin 3.9 g/dL (3.4-4.8); Alkaline Phosphatase 62 U/L (40-110); Anion Gap 23 mmol/L (10-20); BUN (Urea Nitrogen) 31 mg/dL (8.4-25.7); Bilirubin, Total 0.5 mg/dL (0.2-1.2); Calc. Creatinine Clearance 0 mL/min (70-130); Calcium 9.6 mg/dL (7.8-10.44); Carbon Dioxide 24 mmol/L (23-31); Chloride 98 mmol/L (98-107); Globulin 3.4 g/dL (2.4-3.5); Glucose 135 mg/dL (83-110); Potassium 4.6 mmol/L (3.5-5.1); Protein, Total 7.3 g/dL (5.8-8.1); Sodium 140 mmol/L (136-145)
== END 2022-04-18 11:45 | disposition home or self-care (01) ==
LOC: BURERS 09:51
DX: I95.2 Hypotension due to drugs (principal); T46.5X5A Adverse effect of other antihypertensive drugs, initial encounter; E78.5 Hyperlipidemia, unspecified; I50.9 Heart failure, unspecified; E66.9 Obesity, unspecified; E11.22 Type 2 diabetes mellitus with diabetic chronic kidney disease; N18.6 End stage renal disease; I13.2 Hypertensive heart and chronic kidney disease with heart failure and with stage 5 chronic kidney disease, or end stage renal disease; I25.10 Atherosclerotic heart disease of native coronary artery without angina pectoris; M10.9 Gout, unspecified; M06.9 Rheumatoid arthritis, unspecified; G47.30 Sleep apnea, unspecified; Z99.2 Dependence on renal dialysis; Z79.899 Other long term (current) drug therapy; Z79.82 Long term (current) use of aspirin
CPT/HCPCS: 71045; 80053; 82550; 83605; 85025; 86140; 93005

== ENCOUNTER 2022-07-15 15:18 | Emergency (ER) | payer MEDICARE ==
[2022-07-15 15:59] LABS: #Basophils 0.1 thou/uL (0.0-0.2); #Lymphocytes 0.7 thou/uL (1.20-3.40); #Monocytes 0.4 thou/uL (0.11-0.59); #Neutrophils 7.8 thou/uL (1.40-6.50); %Basophils 1.1 % (0.0-1.0); %Lymphocytes 7.7 % (21.0-51.0); %Monocytes 3.9 % (0.0-10.0); %Neutrophils 87.4 % (42.0-75.0); Hemoglobin 12.6 g/dL (14.0-18.0); Mean Corpuscular HGB CONC 31.9 g/dL (32.0-36.0); Mean Corpuscular Hemoglobin 34.5 pg (27.0-31.0); Mean Platelet Volume 5.9 fL (7.4-10.4); Platelet Count 180 thou/uL (130-400); RBC Distribution Width 13.7 % (11.5-14.5); Red Blood Cell (RBC) Count 3.65 mill/uL (4.70-6.10); White Blood Cell (WBC) Count 8.9 thou/uL (4.8-10.8)
[2022-07-15 16:00] LABS: MDiff Complete? YES
[2022-07-15 16:03] LABS: ALT (SGPT) 30 U/L (8-55); AST (SGOT) 21 U/L (5-34); Alkaline Phosphatase 62 U/L (40-110); Anion Gap 21 mmol/L (10-20); BUN (Urea Nitrogen) 28 mg/dL (8.4-25.7); Bilirubin, Total 0.4 mg/dL (0.2-1.2); Calc. Creatinine Clearance 0 mL/min (70-130); Calcium 9.7 mg/dL (7.8-10.44); Carbon Dioxide 26 mmol/L (23-31); Chloride 95 mmol/L (98-107); Estimated GFR 8; Glucose 137 mg/dL (83-110); Potassium 4.6 mmol/L (3.5-5.1); Sodium 137 mmol/L (136-145)
[2022-07-15 18:37] LABS: Lactic Acid 1.6 mmol/L (0.5-2.2)
== END 2022-07-15 18:40 | disposition home or self-care (01) ==
LOC: BURERS 15:18
DX: I13.2 Hypertensive heart and chronic kidney disease with heart failure and with stage 5 chronic kidney disease, or end stage renal disease (principal); E11.22 Type 2 diabetes mellitus with diabetic chronic kidney disease; N18.6 End stage renal disease; I50.9 Heart failure, unspecified; E86.0 Dehydration; E86.1 Hypovolemia; E78.5 Hyperlipidemia, unspecified; I25.10 Atherosclerotic heart disease of native coronary artery without angina pectoris
CPT/HCPCS: 36415; 80053; 83605; 85025; 93005

== ENCOUNTER 2022-09-08 20:09 | Emergency (ER) | payer MEDICARE ==
[2022-09-08] MEDS ORDERED: Morphine 4 MG/ML VIAL ONE (21:54)
[2022-09-08 22:41] LABS: #Basophils 0.1 thou/uL (0.0-0.2); #Eosinphils 0.3 thou/uL (0.0-0.7); #Lymphocytes 2.4 thou/uL (1.20-3.40); #Monocytes 0.6 thou/uL (0.11-0.59); #Neutrophils 5.3 thou/uL (1.40-6.50); %Basophils 1.3 % (0.0-1.0); %Eosinophils 3.9 % (0.0-10.0); %Lymphocytes 27.2 % (21.0-51.0); %Monocytes 7.1 % (0.0-10.0); %Neutrophils 60.6 % (42.0-75.0); Hemoglobin 10.8 g/dL (14.0-18.0); Mean Corpuscular HGB CONC 32.3 g/dL (32.0-36.0); Mean Corpuscular Hemoglobin 35.6 pg (27.0-31.0); Mean Platelet Volume 6.3 fL (7.4-10.4); Platelet Count 219 10x3/uL (130-400); RBC Distribution Width 13.2 % (11.5-14.5); Red Blood Cell (RBC) Count 3.05 mill/uL (4.70-6.10); White Blood Cell (WBC) Count 8.7 10x3/uL (4.8-10.8)
[2022-09-08 22:50] LABS: ALT (SGPT) 40 U/L (8-55); AST (SGOT) 24 U/L (5-34); Albumin 3.5 g/dL (3.4-4.8); Alkaline Phosphatase 66 U/L (40-110); Anion Gap 23 mmol/L (10-20); BUN (Urea Nitrogen) 59 mg/dL (8.4-25.7); Bilirubin, Total 0.4 mg/dL (0.2-1.2); Calc. Creatinine Clearance 0 mL/min (70-130); Carbon Dioxide 25 mmol/L (23-31); Chloride 98 mmol/L (98-107); Estimated GFR 4; Globulin 3.1 g/dL (2.4-3.5); Glucose 80 mg/dL (83-110); Lipase 40 U/L (8-78); Potassium 5.3 mmol/L (3.5-5.1); Protein, Total 6.6 g/dL (5.8-8.1); Sodium 141 mmol/L (136-145)
== END 2022-09-09 00:12 | disposition home or self-care (01) ==
LOC: BURERS 20:09
DX: R53.1 Weakness (principal); R19.7 Diarrhea, unspecified; I13.2 Hypertensive heart and chronic kidney disease with heart failure and with stage 5 chronic kidney disease, or end stage renal disease; E11.22 Type 2 diabetes mellitus with diabetic chronic kidney disease; I50.9 Heart failure, unspecified; N18.6 End stage renal disease; E78.5 Hyperlipidemia, unspecified; I25.10 Atherosclerotic heart disease of native coronary artery without angina pectoris
CPT/HCPCS: 80053; 83605; 83690; 85025; 93005; 96374; J2270

== ENCOUNTER 2022-09-10 05:31 | Emergency (ER) | payer MEDICARE ==
[2022-09-10] MEDS ORDERED: Morphine 2 MG/ML VIAL ONE (06:39)
[2022-09-10] MEDS ORDERED: Ciprofloxacin 500 MG TAB ONE (06:40)
== END 2022-09-10 06:54 | disposition home or self-care (01) ==
LOC: BURERS 05:31
DX: R19.7 Diarrhea, unspecified (principal); M79.605 Pain in left leg; E11.22 Type 2 diabetes mellitus with diabetic chronic kidney disease; I13.2 Hypertensive heart and chronic kidney disease with heart failure and with stage 5 chronic kidney disease, or end stage renal disease; I50.9 Heart failure, unspecified; N18.6 End stage renal disease; E78.5 Hyperlipidemia, unspecified; E66.9 Obesity, unspecified; I25.10 Atherosclerotic heart disease of native coronary artery without angina pectoris
CPT/HCPCS: 96372; 99283; J2270

== ENCOUNTER 2022-09-23 05:43 | Emergency (ER) | payer MEDICARE ==
[2022-09-23] MEDS ORDERED: Loperamide HCl 2 MG CAP PO SCH (06:30)
== END 2022-09-23 06:41 | disposition home or self-care (01) ==
LOC: BURERS 05:43
DX: R19.7 Diarrhea, unspecified (principal); I13.2 Hypertensive heart and chronic kidney disease with heart failure and with stage 5 chronic kidney disease, or end stage renal disease; E11.22 Type 2 diabetes mellitus with diabetic chronic kidney disease; N18.6 End stage renal disease; I50.9 Heart failure, unspecified; Z99.2 Dependence on renal dialysis; E66.9 Obesity, unspecified; E78.5 Hyperlipidemia, unspecified
CPT/HCPCS: 99283